=== PATIENT | male | born 1965 | race Caucasian/White ===

== ENCOUNTER 2025-02-17 16:29 | Observation (INO) | payer OTHER, SELFPAY ==
[2025-02-17] VITALS (14 sets, daily range): BP systolic 104–143; BP diastolic 61–89; PULSE 92–118; RESP 17–20; TEMP 36.9–37; O2SAT 95–100
--- NOTE | 2025-02-17 16:55 | ED_ITS ---
HPI - General Adult General Chief complaint: Abdominal Pain Stated complaint: ruptured appy Time Seen by Provider: 02/17/25 16:30 History of Present Illness HPI narrative: patient is a 59-year-old gentleman presents emergency department with chief complaint of ruptured appendix. Patient reports that he has been having right lower quadrant abdominal pain reports that he last ate last evening and had a sip of water today the patient reports that his primary doctor ordered outpatient labs and a CT scan that showed a acute appendicitis there was concern for possible rupture Related Data Allergies Allergy/AdvReac Type Severity Reaction Status Date / Time No Known Allergies Allergy Verified 02/17/25 16:50 Review of Systems 2 Review of Systems: A 10 system review of systems was completed on the patient and is negative except for what is stated in the HPI. Nursing and ancillary documentation was reviewed. Exam 2 Narrative: GENERAL: Well-appearing, well-nourished, and in no acute distress. HEAD: Normocephalic, atraumatic. EYES: PERRLA and EOMI. ENT: Nares clear, no rhinorrhea or epistaxis. Mucous membranes moist. NECK: Supple. CHEST: Clear to auscultation. No respiratory distress. HEART: Regular rate and rhythm. No murmur heard. Normal peripheral pulses. ABDOMEN: Soft, Tenderness to palpation the right quadrant, nondistended, normal active bowel sounds. EXTREMITIES: Normal range of motion. No edema. SKIN: Warm, dry, no rash. NEURO: No focal deficits. Alert and oriented x3. PSYCH: Normal mood and affect. Course Vital Signs Vital signs: Vital Signs Temperature 36.9 C 02/17/25 16:31 Pulse Rate 118 H 02/17/25 16:31 Respiratory Rate 20 02/17/25 16:31 Blood Pressure 138/89 02/17/25 16:31 Pulse Oximetry 97 02/17/25 16:31 Oxygen Delivery Room Air 02/17/25 16:31 Temperature 36.9 C 02/17/25 16:40 Pulse Rate 116 H 02/17/25 16:40 Respiratory Rate 20 02/17/25 16:40 Blood Pressure 138/89 02/17/25 16:40 Pulse Oximetry 97 02/17/25 16:40 Oxygen Delivery Room Air 02/17/25 16:31 MDM Differential Diagnosis Differential Diagnosis: acute appendicitis, intra-abdominal infection, CT scan of the abdomen pelvis showed significant inflammatory changes in the right lower quadrant suggestive of complicated acute appendicitis with contained rupture laboratory studies from earlier [place] [id number] Lab Data 02/17/25 16:51 02/17/25 16:51 Labs: Lab Results 02/17/25 Range/Units 16:51 WBC 16.3 H (4.5-10.0) K/mm3 RBC 4.80 (4.6-6.20) M/mm3 Hgb 14.1 (14.0-18.0) g/dL Hct 41.0 L (42.0-52.0) % MCV 85.4 (80-100) fl MCH 29.4 (26-34) pg MCHC 34.4 (32-36) g/dl RDW 13.3 (11.5-14.5) % Plt Count 222 (150-375) k/mm3 MPV 8.8 (7.4-10.4) fl Immature Gran % (Auto) 0.4 (0-0.5) % Neut % (Auto) 85.7 H (45.5-73.1) % Lymph % (Auto) 6.2 L (18.3-44.2) % Walker % (Auto) 7.5 (2.6-8.5) % Eos % (Auto) 0.1 (0-4.4) % Baso % (Auto) 0.1 L (0.2-1.2) % Lymph # (Auto) 1.01 (0.9-3.2) K/mm3 Walker # (Auto) 1.2 H (0.1-0.6) K/mm3 Eos # (Auto) 0.0 (0-0.3) K/mm3 Baso # (Auto) 0.0 (0.0-0.1) K/mm3 Abs Immat Gran (auto) 0.06 H (0.00-0.031) K/mm3 Absolute Neuts (auto) 14.0 H (1.3-6.7) K/mm3 Absolute Nucleated RBC 0.000 (0.0-0.012) K/mm3 Nucleated RBC % 0.0 (0.0-0.2) % Sodium 130 L (137-145) mmol/L Potassium 3.7 (3.4-5.0) mmol/L Chloride 94 L (98-107) mmol/L Carbon Dioxide 28 (22-30) mmol/L Anion Gap 8 (4-12) mmol/L BUN 19 (9-20) mg/dL Creatinine 0.82 (0.7-1.3) mg/dL Estim Creat Clear Calc 76 ml/min Estimated GFR > 60 (59 - ) Glucose 132 H (65-110) mg/dL Lactic Acid 1.7 (0.7-2.0) mmol/L Calcium 9.6 (8.4-10.2) mg/dL Total Bilirubin 1.7 H (0.2-1.3) mg/dL AST 38 (17-59) U/L ALT 39 (6-50) U/L Alkaline Phosphatase 61 (38-126) U/L Total Protein 8.6 H (6.3-8.2) g/dL Albumin 4.8 (3.5-5.1) g/dL Urine Color Yellow (Yellow) Urine Appearance Clear (Clear) Urine pH 6.0 (5.0-9.0) Ur Specific [place] > 1.045 H (1.001-1.035) Urine Protein 1+ H (Negative) mg/dL Urine Glucose (UA) Negative (Negative) mg/dL Urine Ketones 1+ H (Negative) mg/dL Ur Blood (Man) Negative (Negative) Urine Nitrate Negative (Negative) Urine Bilirubin Negative (Negative) Urine Urobilinogen 1.0 (<2.0) mg/dL Add Ur Microanalysis Reviewed Leukocyte Esterase Rfl Negative (Negative) ADAN/UL Urine RBC 0-2 (0-2) /hpf Urine WBC 0-5 (0-3) /hpf Ur Squamous Epith Cells None seen (Few) /hpf Urine Bacteria None seen /hpf Urine Casts 0-2 Discharge Plan Discharge Clinical Impression: Acute appendicitis Instructions: Antibiotic Form Patient Language: Georgian Follow-up/Referrals: PHYSICIAN,QUALITY ASSURANCE CLERK [Non-Staff, Internal Medicine]
[2025-02-17] MEDS: SODIUM CHLORIDE 0.9% IV 1,000 ML 999 ML IV CONT (16:56)
[2025-02-17 17:00] LABS: Hematocrit 41.0 % (42.0-52.0); Hemoglobin 14.1 g/dL (14.0-18.0); Immature Granulocyte Percent A 0.4 % (0-0.5); Lymphocytes Absolute Auto 1.01 K/mm3 (0.9-3.2); Mean Corpuscular HGB Conc 34.4 g/dl (32-36); Mean Corpuscular Hemoglobin 29.4 pg (26-34); Mean Corpuscular Volume 85.4 fl (80-100); Nucleated Red Blood Cells Absolute Auto 0.000 K/mm3 (0.0-0.012); Nucleated Red Blood Cells Perc 0.0 % (0.0-0.2); Platelet Count Result 222 k/mm3 (150-375); Red Blood Count 4.80 M/mm3 (4.6-6.20); White Blood Count 16.3 K/mm3 (4.5-10.0)
[2025-02-17 17:13] LABS: Alanine Aminotransferase 39 U/L (6-50); Albumin Level 4.8 g/dL (3.5-5.1); Alkaline Phosphatase 61 U/L (38-126); Anion Gap 8 mmol/L (4-12); Aspartate Amino Transferase 38 U/L (17-59); Bilirubin,Total 1.7 mg/dL (0.2-1.3); Blood Urea Nitrogen 19 mg/dL (9-20); Calcium 9.6 mg/dL (8.4-10.2); Carbon Dioxide 28 mmol/L (22-30); Chloride 94 mmol/L (98-107); Estimated CRCL calculation 76 ml/min; Estimated Glomerular Filt Rate > 60; Glucose 132 mg/dL (65-110); Potassium 3.7 mmol/L (3.4-5.0); Sodium 130 mmol/L (137-145); Total Protein 8.6 g/dL (6.3-8.2)
[2025-02-17 17:18] LABS: Add Urine Microscopic? YES; Appearance Urine Clear (Clear); Glucose Urine UA Negative (Negative); Leukocyte Esterase Ur Negative LEU/UL (Negative); Need Manual Microscopic Reviewed; Nitrate Urine Negative (Negative); Non Pathogenic Casts 0-2; Specific Grav Ur > 1.045 (1.001-1.035)
[2025-02-17] MEDS: PIPERACILLIN/TAZOBACTAM SOD 3.375 GM in SODIUM CHLORIDE 0.9% IV 50 ML 100 ML IVPB (17:53)
--- NOTE | 2025-02-17 21:07 | WPDANESEPPF ---
Anes - Initial Pre Proc Eval Procedure: Operation Date: 02/17/25 19:00 Proposed Procedures p Laparoscopic Appendectomy - Javier Martell DO Date/Time: 02/17/25 21:07 Surgeon: Javier Martell DO Pre Op Diagnosis: ruptured appy Patient Data Age: 59 Gender: M Height: 1.78 m Weight: 62 kg Last Vital Signs Temp 36.9 C 02/17/25 16:40 Pulse 94 02/17/25 20:43 Resp 19 02/17/25 20:43 BP 120/78 02/17/25 20:43 Pulse Ox 100 02/17/25 20:43 O2 Del Method Room Air 02/17/25 16:31 Allergies Allergy/AdvReac Type Severity Reaction Status Date / Time No Known Allergies Allergy Verified 02/17/25 16:50 Laboratory Tests 02/17/25 16:51 WBC 16.3 H K/mm3 (4.5-10.0) RBC 4.80 M/mm3 (4.6-6.20) Hgb 14.1 g/dL (14.0-18.0) Hct 41.0 L % (42.0-52.0) MCV 85.4 fl (80-100) MCH 29.4 pg (26-34) MCHC 34.4 g/dl (32-36) RDW 13.3 % (11.5-14.5) Plt Count 222 k/mm3 (150-375) MPV 8.8 fl (7.4-10.4) Immature Gran % (Auto) 0.4 % (0-0.5) Neut % (Auto) 85.7 H % (45.5-73.1) Lymph % (Auto) 6.2 L % (18.3-44.2) Sanders % (Auto) 7.5 % (2.6-8.5) Eos % (Auto) 0.1 % (0-4.4) Baso % (Auto) 0.1 L % (0.2-1.2) Lymph # (Auto) 1.01 K/mm3 (0.9-3.2) [place] # (Auto) 1.2 H K/mm3 (0.1-0.6) Eos # (Auto) 0.0 K/mm3 (0-0.3) Baso # (Auto) 0.0 K/mm3 (0.0-0.1) Abs Immat Gran (auto) 0.06 H K/mm3 (0.00-0.031) Absolute Neuts (auto) 14.0 H K/mm3 (1.3-6.7) Absolute Nucleated RBC 0.000 K/mm3 (0.0-0.012) Nucleated RBC % 0.0 % (0.0-0.2) Sodium 130 L mmol/L (137-145) Potassium 3.7 mmol/L (3.4-5.0) Chloride 94 L mmol/L (98-107) Carbon Dioxide 28 mmol/L (22-30) Anion Gap 8 mmol/L (4-12) BUN 19 mg/dL (9-20) Creatinine 0.82 mg/dL (0.7-1.3) Estim Creat Clear Calc 76 ml/min Estimated GFR > 60 (59 - ) Glucose 132 H mg/dL (65-110) Lactic Acid 1.7 mmol/L (0.7-2.0) Calcium 9.6 mg/dL (8.4-10.2) Total Bilirubin 1.7 H mg/dL (0.2-1.3) AST 38 U/L (17-59) ALT 39 U/L (6-50) Alkaline Phosphatase 61 U/L (38-126) Total Protein 8.6 H g/dL (6.3-8.2) Albumin 4.8 g/dL (3.5-5.1) Urine Color Yellow (Yellow) Urine Appearance Clear (Clear) Urine pH 6.0 (5.0-9.0) Ur Specific [place] > 1.045 H (1.001-1.035) Urine Protein 1+ H mg/dL (Negative) Urine Glucose (UA) Negative mg/dL (Negative) Urine Ketones 1+ H mg/dL (Negative) Ur Blood (Man) Negative (Negative) Urine Nitrate Negative (Negative) Urine Bilirubin Negative (Negative) Urine Urobilinogen 1.0 mg/dL (<2.0) Add Ur Microanalysis Reviewed Leukocyte Esterase Rfl Negative ADAN/UL (Negative) Urine RBC 0-2 /hpf (0-2) Urine WBC 0-5 /hpf (0-3) Ur Squamous Epith Cells None seen /hpf (Few) Urine Bacteria None seen /hpf Urine Casts 0-2 Patient hx anesthesia problems: none Family hx anesthesia problems: none Results Review: All pre-operative results and documents have been reviewed as part of the pre-operative evaluation. Anes - Eval Final PreProcedure Day of Procedure 02/17/25 21:07 Patient weight: normal Heart: regular rate and rhythm Lungs: clear to auscultation Airway: Mallampati scale class II Neurological: alert and oriented Last oral intake: >/= 8 hours ASA classification: II Emergent: yes Anesthetic plan: proceed Anesthesia type and monitoring: general ETT and standard monitoring Results Review: All pre-operative results and documents have been reviewed as part of the pre-operative evaluation. Informed Consent: The patient's anesthetic plan and its attendant risks and benefits were discussed with the patient/family/POA. Questions were solicited and answers provided to the satisfaction of the patient/family/POA.
--- NOTE | 2025-02-17 21:12 | WPDHPUPDATE1 ---
History and Physical Update Update Date/Time: 02/17/25 21:12 History and Physical has been reviewed, including an updated exam of the patient. There are NO changes in the patient's condition. Risks, benefits, and alternatives have been discussed and questions answered. Patient agrees to proceed with procedure.
--- NOTE | 2025-02-17 21:12 | PM.IMHP2 ---
H&P: HPI History of Present Illness Date/Time: 02/17/25 21:12 Chief Complaint: Right lower quadrant pain Narrative: this is a 59-year-old man who presented to the emergency department this evening with right lower quadrant pain that started yesterday morning. He had vague mid abdominal tenderness throughout the day and was also experiencing some nausea with dry heaves. He denied any fevers or chills. This morning he continued to have symptoms and saw his PCP who ordered labs and a CT. This showed evidence of acute appendicitis and he was then referred to the ED. he has never had symptoms like this in the past. Review of Systems Review of Systems: All systems reviewed & are unremarkable except as noted in HPI and below Eyes: Eyes: Denies change in vision ENT: Denies hearing loss, Denies neck pain and Denies sore throat Cardiovascular: Cardiovascular: Denies chest pain and Denies dyspnea Respiratory: Respiratory: Denies cough, Denies dyspnea and Denies wheezing Gastrointestinal: Gastrointestinal: Reports as per HPI Genitourinary: Genitourinary: Denies hematuria and Denies dysuria Musculoskeletal: Musculoskeletal: Denies arthralgias, Denies joint swelling and Denies neck pain Allergic/Immunologic: Allergic/Immunologic: Denies wheezing PMFSH Past Medical History Medical History (Updated 02/17/25 @ 21:17 by Javier Martell DO) No pertinent past medical history Surgical History Surgical History (Updated 02/17/25 @ 21:15 by Javier Martell DO) History of inguinal hernia repair laparoscopic right inguinal hernia repair Social History Social History (Updated 02/17/25 @ 21:16 by Javier Martell DO) Smoking status: Never smoker Meds Home Medications and Allergies Allergies Allergy/AdvReac Type Severity Reaction Status Date / Time No Known Allergies Allergy Verified 02/17/25 16:50 Vital Signs Vital Signs - 24 hr 02/17/25 16:31 02/17/25 16:40 02/17/25 17:01 Temperature 98.4 F 98.4 F Pulse Rate 118 H 116 H 110 H Respiratory Rate 20 20 20 Blood Pressure 138/89 138/89 130/80 Pulse Oximetry 97 97 99 Oxygen Delivery Room Air 02/17/25 17:16 02/17/25 17:31 02/17/25 18:31 Temperature Pulse Rate 105 H 92 96 Respiratory Rate 17 18 20 Blood Pressure 135/79 130/82 121/75 Pulse Oximetry 100 100 98 Oxygen Delivery 02/17/25 19:31 02/17/25 19:46 02/17/25 20:43 Temperature Pulse Rate 96 100 94 Respiratory Rate 20 19 19 Blood Pressure 118/78 119/76 120/78 Pulse Oximetry 98 97 100 Oxygen Delivery Exam Const: General: alert; No acute distress Orientation/consciousness: patient oriented x3 Limitations: no limitations HENMT: Head: normocephalic and atraumatic Ears: hearing grossly normal bilaterally Face/Nose/Sinus: Normal external nose present and Normal nares present Mouth: Yes Normal oral and palatal mucosa present and Yes moist mucous membranes Eyes: General: appearance normal, both eyes and all related structures Conjunctivae: conjunctivae normal Sclera: sclerae normal Pupils: Equal, round and reactive pupils present EOM: EOMs intact bilaterally Neck: Neck: normal visual inspection, full ROM, no lymphadenopathy, supple and no JVD Lymphatic: no lymphadenopathy noted Chest: Chest palpation & inspection: normal inspection of the chest Resp: Effort & Inspection: normal respiratory effort and able to speak in complete sentences Auscultation: clear to auscultation bilaterally Percussion: percussion normal Cardio: Jugular venous distension: no JVD Rate: regular rate Rhythm: regular rhythm Heart sounds: S1 normal heart sound present and S2 normal heart sound present Peripheral pulses: Peripheral pulses 2+ throughout GI: Inspection: normal to inspection GI Palp: Yes Soft to palpation, Yes Tenderness to palpation present (GI) ( right lower quadrant) and Yes Guarding due to palpation present (GI) ( right lower quadrant) Auscultation: normal bowel sounds : General: Yes no CVA tenderness Back/Spine/Pelvis: Back: no CVA tenderness Skin: General skin exam: normal color and dry skin Neuro: General: patient oriented x3, gait normal, moves all extremities, no focal motor deficits and CN's II-XI intact bilaterally Cranial nerves: Yes Equal, round and reactive pupils present Speech: normal speech Extrem: General: normal to inspection and capillary refill normal Results Labs Labs: Short CBC 02/17/25 Range/Units 16:51 WBC 16.3 H (4.5-10.0) K/mm3 Hgb 14.1 (14.0-18.0) g/dL Hct 41.0 L (42.0-52.0) % Plt Count 222 (150-375) k/mm3 BMP 02/17/25 16:51 Sodium 130 L Potassium 3.7 Chloride 94 L Carbon Dioxide 28 BUN 19 Creatinine 0.82 Glucose 132 H Calcium 9.6 Liver Function 02/17/25 Range/Units 16:51 Total Bilirubin 1.7 H (0.2-1.3) mg/dL AST 38 (17-59) U/L ALT 39 (6-50) U/L Alkaline Phosphatase 61 (38-126) U/L Albumin 4.8 (3.5-5.1) g/dL Urine 02/17/25 Range/Units 16:51 Urine Color Yellow (Yellow) Urine Appearance Clear (Clear) Urine pH 6.0 (5.0-9.0) Ur Specific [place] > 1.045 H (1.001-1.035) Urine Protein 1+ H (Negative) mg/dL Urine Glucose (UA) Negative (Negative) mg/dL Imaging CT scan - abdomen: My impression: CT was done under a different medical record number but images were able to be reviewed. He has evidence of acute appendicitis with possible perforation. Assessment and Plan Assessment and plan (1) Acute appendicitis: Qualifiers: Acute appendicitis type: with localized peritonitis Appendicitis gangrene presence: unspecified whether gangrene present Appendicitis perforation presence: unspecified whether perforation present Appendicitis abscess presence: unspecified whether abscess present Qualified Code(s): K35.30 - Acute appendicitis with localized peritonitis, without perforation or gangrene Code(s): K35.80 - Unspecified acute appendicitis Status: Acute Assessment and Plan: I have reviewed the CT and discussed the findings with the patient. He has evidence of acute appendicitis with possible perforation. He was started on Zosyn in the emergency department. I discussed medical and surgical treatment options and patient feels comfortable proceeding with surgery. I have recommended laparoscopic appendectomy, possible open. I discussed the procedure, risks, benefits, and alternatives. Questions were answered. Hospitalist MIPS Medication Reconciliation I have utilized all available resources to obtain, update and review the patients current medications (includes all prescriptions, OTC, herbals, cannabis, and nutritional supplements).: Yes
[2025-02-17] MEDS: BUPIVACAINE/EPINEPHRINE 0.5% 30 ML VIAL INFILTRATE (21:56)
--- NOTE | 2025-02-17 22:05 | S_PTH ---
PATIENT: Abimael Espinal LOC: [id number] U#:[id number] AGE/SX: 59/M ROOM: 343 RE02/17/[address]: Javier Martell DO : 1965 BED: 01 DIS: 02/18/2025 SPEC #: [id number] RECD: 02/18/25 09:15 STATUS: PRISCILA REQ #: [id number] KAREL: 02/17/25 22:[address]: Javier Martell DEPT: [facility] Surgical RECD BY: Maddy Mckeon ENTERED: 02/18/25 09:15 SP TYPE: Surgical OTHR DR: Migel Seymour DO Tissues: A - Appendix Procedures: Hematoxylin and Eosin Stain Gross and Microscopic Level 3
--- NOTE | 2025-02-17 22:24 | W.PM.PROC2 ---
Procedure Note - Detailed Date of Procedure 02/17/25 Pre-op Diagnosis Acute appendicitis Post-op Diagnosis Same ( acute gangrenous perforated appendicitis) Procedure Performed Laparoscopic appendectomy Surgeon Javier Martell, DO Anesthesia General and Local (0.5% bupivacaine with epinephrine) Indications this is a 59-year-old man who presented to the emergency department with right lower quadrant pain that started yesterday. He had seen his PCP this morning and had labs and a CT performed as an outpatient. He was then directed to the ED once the results showed evidence of acute appendicitis. Discussions were made with the patient about treatment options and decision was made to proceed with laparoscopic appendectomy, possible open. Findings Laparoscopic appendectomy was performed. The appendix had some surrounding adhesions and was tethered to the right lower quadrant abdominal wall. The entire length of the appendix appeared gangrenous except for the area right at the base. There appeared to be perforation at the midportion of the appendix as well. There was no signs of surrounding abscess or purulence fluid in the pelvis. The base of the appendix appeared healthy and viable. The appendix was removed and sent to the lab for pathology. The abdomen was then irrigated with about 1 L of sterile saline. No other intra-abdominal abnormalities were noted. Description of Procedure Procedure as well as risks, benefits, and alternatives were explained to the patient. The patient agreed to proceed. Written consent was obtained and placed in chart prior to procedure. The patient was brought back to surgical suite. He was placed supine on operating table. Time-out was done to confirm the patient and procedure. The patient was then intubated by the Anesthesia Department. his abdomen was prepped and draped in sterile fashion using chlorhexidine prep. A 12 mm incision was made at the inferior portion of the umbilicus. Blunt dissection was carried out down to the linea alba. The linea alba was then incised using a 15 blade scalpel. Then bluntly entered into the peritoneal cavity. A 12 mm trocar was then inserted, and carbon dioxide insufflation was used to create a pneumoperitoneum. The camera was inserted and the abdomen was inspected. No immediate abnormalities were identified. The patient was then placed in slight Trendelenburg position and rotated to the left. A 5 mm incision was made in the suprapubic region in midline and a 5 mm trocar was inserted under direct visualization. A 5 mm incision was made in the left lower quadrant and a 5 mm trocar was inserted under direct visualization. The right lower quadrant was carefully inspected. The cecum was identified and then this was traced back to the appendix. The appendix was identified and grasped at the mesoappendix and lifted anteriorly. Careful blunt dissection was carried out at the base of the appendix through the mesoappendix using a [place] grasper. An Endo-MIGUEL 45 mm blue load stapler was then advanced across the base of the appendix and clamped and fired. A white reload was then clamped across the mesoappendix and fired. This freed up our appendix completely. It was then placed in an EndoCatch bag and removed through the umbilical port. The staple lines were then inspected. Hemostasis appeared adequate and the staple lines appeared secure. The area was then irrigated with sterile saline. The pelvis was then carefully inspected and irrigated with sterile saline as well and the remainder of the abdomen was carefully inspected. The patient was then flattened out in bed. One final inspection was made around the abdominal cavity and no other abnormalities were seen. The ports were then removed under direct visualization. The camera was removed and the pneumoperitoneum was released. The fascia of the umbilical incision was reapproximated using an 0 Vicryl [id number] suture. 0.5% bupivacaine with epinephrine was infiltrated locally around each of the incisions. The skin of the incisions was then approximated using 4-0 Monocryl subcuticular suture and Exofin glue was applied on top. The patient was then awakened from anesthesia, extubated, and transferred to Recovery. Estimated Blood Loss 5 Pathology Yes (Appendix) Complications No immediate complications Condition Stable Disposition Observation [facility] Billing Surgery - Charge Forward: Surgery Billing
[2025-02-17] MEDS: LACTATED RINGERS 1,000 ML 30 ML IV CONT (22:27)
--- NOTE | 2025-02-17 23:34 | PC.NURSE ---
This patient, Abimael Espinal, was received from [OR ] on 02/17/25 at 2330. Patient/family oriented to unit policies and routines.
[2025-02-18] MEDS: LACTATED RINGERS 1,000 ML 100 ML IV CONT (00:43)
[2025-02-18] MEDS: PIPERACILLIN/TAZOBACTAM SOD 3.375 GM in SODIUM CHLORIDE 0.9% IV 50 ML 100 ML IVPB ×3 (00:43→12:39)
[2025-02-18 01:00] VITALS: BP 115/74; PULSE 90; RESP 18; TEMP 37.3; O2SAT 98
[2025-02-18 05:40] LABS: Hematocrit 35.7 % (42.0-52.0); Hemoglobin 12.1 g/dL (14.0-18.0); Mean Corpuscular HGB Conc 33.9 g/dl (32-36); Mean Corpuscular Hemoglobin 29.4 pg (26-34); Mean Corpuscular Volume 86.7 fl (80-100); Platelet Count Result 174 k/mm3 (150-375); Red Blood Count 4.12 M/mm3 (4.6-6.20); White Blood Count 15.4 K/mm3 (4.5-10.0)
[2025-02-18] MEDS: HYDROcodone/acetaminophen (*CRX) 7.5-325 MG TABLET 1 TAB PO (06:20)
[2025-02-18 06:23] LABS: Anion Gap 3 mmol/L (4-12); Blood Urea Nitrogen 16 mg/dL (9-20); Calcium 8.7 mg/dL (8.4-10.2); Carbon Dioxide 28 mmol/L (22-30); Chloride 99 mmol/L (98-107); Estimated CRCL calculation 83 ml/min; Estimated Glomerular Filt Rate > 60; Glucose 130 mg/dL (65-110); Potassium 3.5 mmol/L (3.4-5.0); Sodium 130 mmol/L (137-145)
[2025-02-18 06:24] VITALS: BP 118/76; PULSE 84; RESP 20; TEMP 36.7; O2SAT 98
[2025-02-18 09:01] VITALS: BP 106/68; PULSE 81; RESP 14; TEMP 36.7; O2SAT 96
[2025-02-18 11:58] VITALS: BP 120/70; PULSE 93; RESP 16; O2SAT 100
--- NOTE | 2025-02-18 12:03 | P.DS_ITS ---
DS: Admitting Diagnosis Discharge Date 02/18/2025 Admitting Diagnosis Acute perforated appendicitis DS: Discharge Diagnosis Discharge Diagnosis (1) Acute perforated appendicitis: Code(s): K35.32 - Acute appendicitis with perforation, localized peritonitis, and gangrene, without abscess Status: Acute DS: Summary Hospital Course Reason for hospitalization: Acute appendicitis Hospital Course: This is a 59-year-old man who presented to the emergency department on 02/17/2025 with right lower quadrant pain. His symptoms started 1 day prior, and he had seen his PCP during the day on 02/17. Labs and a CT were obtained as an outpatient and CT showed evidence of acute appendicitis with possible perforation. He was then referred to the ED for further treatment. His white blood count was elevated and he had tenderness with guarding in the right lower quadrant. He was started on IV Zosyn and underwent urgent laparoscopic appendectomy on 02/17/2025. Appendix appeared gangrenous and perforated and he was placed in observation postoperatively and antibiotics were continued. His diet and activity were advanced as tolerated. On postop day 1 his pain was well controlled and he was getting up ambulating with limited assistance. He was remaining hemodynamically stable. He was discharged on 02/18/2025. Status at Discharge Functional status at discharge: independent ambulation Overall status at discharge: patient is progressing back to baseline Time Spent with Patient Time attestation: Total time spent providing and/or coordinating discharge services: Time spent: Less than 30 minutes Exam Const: General: comfortable and no acute distress Orientation/consciousness: patient oriented x3 Resp: Effort & Inspection: normal respiratory effort Auscultation: clear to auscultation bilaterally Cardio: Rate: regular rate Rhythm: regular rhythm GI: Inspection: non-distended and incision (Intact with glue) GI Palp: Yes Soft to palpation, Yes Tenderness to palpation present (GI) (Incisional) and No Guarding due to palpation present (GI) Auscultation: normal bowel sounds DS: Data Data Completed and Pending Pending studies at discharge: Pending at discharge 02/17/25 22:05 Surgical [PTH] Routine Labs on day of discharge: Labs from last 24 hours 02/18/25 02/17/25 05:23 16:51 WBC 15.4 H 16.3 H RBC 4.12 L 4.80 Hgb 12.1 L 14.1 Hct 35.7 L 41.0 L MCV 86.7 85.4 MCH 29.4 29.4 MCHC 33.9 34.4 RDW 13.5 13.3 Plt Count 174 222 MPV 8.5 8.8 Immature Gran % (Auto) 0.4 Neut % (Auto) 85.7 H Lymph % (Auto) 6.2 L [place] % (Auto) 7.5 Eos % (Auto) 0.1 Baso % (Auto) 0.1 L Lymph # (Auto) 1.01 [place] # (Auto) 1.2 H Eos # (Auto) 0.0 Baso # (Auto) 0.0 Abs Immat Gran (auto) 0.06 H Absolute Neuts (auto) 14.0 H Absolute Nucleated RBC 0.000 Nucleated RBC % 0.0 Sodium 130 L 130 L Potassium 3.5 3.7 Chloride 99 94 L Carbon Dioxide 28 28 Anion Gap 3 L 8 BUN 16 19 Creatinine 0.75 0.82 Estim Creat Clear Calc 83 76 Estimated GFR > 60 > 60 Glucose 130 H 132 H Lactic Acid 1.7 Calcium 8.7 9.6 Total Bilirubin 1.7 H AST 38 ALT 39 Alkaline Phosphatase 61 Total Protein 8.6 H Albumin 4.8 Urine Color Yellow Urine Appearance Clear Urine pH 6.0 Ur Specific [place] > 1.045 H Urine Protein 1+ H Urine Glucose (UA) Negative Urine Ketones 1+ H Ur Blood (Man) Negative Urine Nitrate Negative Urine Bilirubin Negative Urine Urobilinogen 1.0 Add Ur Microanalysis Reviewed Leukocyte Esterase Rfl Negative Urine RBC 0-2 Urine WBC 0-5 Ur Squamous Epith Cells None seen Urine Bacteria None seen Urine Casts 0-2 Discharge Plan Discharge Attending physician on discharge: Javier Dinh Discharging Clinician: Javier Dinh Patient Disposition: Home Activity: other - see discharge instructions Diet: regular Wound Care Instructions: other - see discharge instructions Discharge Instructions: DISCHARGE INSTRUCTION SHEET FOR HERNIA, GALLBLADDER AND APPENDIX SURGERIES DR. DINH PATIENT TO TAKE HOME 1. May shower, no soaking in bath x 2weeks. 2. Call office for: * Wound increasingly painful or bleeding * Vomiting * Fever of greater than 101 degrees 3. If no bowel movement for three days, take 1 oz. (30 ml) Milk of Magnesia or MiraLax 17g 1 to 2 times daily. 4. No heavy lifting > 10-15 pounds x 2 weeks for laparoscopic cholecystectomy or appendectomy. 5. No driving for 3 days or while taking narcotic pain medications. 6. Ice to surgical site for 48 hours (30 min on, then 30 min off). 7. Up walking 10-30 minutes three times per day. 8. Resume previous home medications. 9. Follow-up 10-14 days in office for wound check or as previously scheduled. ([id number]) 10. Oral pain medications prescription to be sent to pharmacy. Take Tylenol 500mg every 6 hours and Ibuprofen 600mg every 6 hours for the first 2 days, then as needed. 11. NUTRITION: Start out by drinking fluids and increase your diet as tolerated. If you experience nausea, try dry toast, crackers, and 7-UP. If nausea or vomiting persists, contact your surgeon?s office. 12. Gallbladders-Low Fat Diet for 2 weeks (send care note of low fat diet) 13. Inguinal Hernias-wear scrotal support for 48 hours 14. Abdominal Hernias-if sent home with abdominal binder, wear for the first 2 weeks (may remove to shower or at night to sleep). Revised July 2018 Patient Instructions: Antibiotic Form Patient Language: Burkinan Stand Alone Forms: General Discharge Information, Work/School Release IP Follow-up/Referrals: PHYSICIAN,PRODUCTION ESTIMATOR [Non-Staff, Internal Medicine] Javier Dinh, DO [Physician, General Surgery] - 3 Weeks Discharge Medications: New hydrocodone-acetaminophen 5-325 mg tablet 1 tablet PO Q4H PRN (Reason: pain) Qty: 5 0RF amoxicillin-pot clavulanate 875-125 mg tablet 1 tablet PO Q12H 10 Days Qty: 20 0RF metronidazole 500 mg tablet 500 mg PO Q8H 10 Days Qty: 30 0RF Date of admission: 02/17/25 23:16 Primary Care Provider: Migel Seymour Admitting Provider: Javier Dinh Attending physician on admission: Javier Dinh Condition: Improved
== END 2025-02-18 14:55 | disposition home or self-care (01) ==
LOC: ANHED 17:06 → ANHSURGERY 17:54 → ANH3MED 02-18 09:38 → ANHSURGERY 02-18 09:39 → ANH3MED 02-18 09:39
PROVIDERS: Admitting Provider Surgery; Emergency Provider Emergency Medicine; PCP Family Medicine; Visit Provider Surgery
PROC: 0DTJ4ZZ Resection of Appendix, Percutaneous Endoscopic Approach (ICD-10-PCS; CPT 44970; principal; 2025-02-17 19:00)
DX: K35.32 Acute appendicitis with perforation, localized peritonitis, and gangrene, without abscess (principal)
CPT/HCPCS: 44970; 36415; 80048; 80053; 81001; 83605; 85025; 85027; 88304; A9270; G0378; J2003; J2250; J2405; J2543; J2704; J3010; J7030; J7120